=== PATIENT | female | born 1985 | race African-American/Black ===

== ENCOUNTER 2017-12-18 21:24 | Emergency (ER) | payer SELFPAY ==
[2017-12-18] MEDS ORDERED: Acetaminophen 500 MG TAB ONE (22:46)
--- NOTE | 2017-12-18 23:01 | RAD ---
LEFT ANKLE THREE VIEWS: 12/18/17 HISTORY: Injury. Fall down stairs. Pain and swelling. COMPARISON: None. FINDINGS: No fracture. No malalignment. The ankle mortise is congruent. Fifth metatarsal tuberosity appears nor mal. Moderate lateral soft tissue swelling. IMPRESSION: Lateral soft tissue swelling suggesting ligamentous injury. No acute fracture or malalignment. POS: [facility]
== END 2017-12-19 00:10 | disposition home or self-care (01) ==
LOC: ERS 21:24
DX: S93.402A Sprain of unspecified ligament of left ankle, initial encounter (principal); F31.9 Bipolar disorder, unspecified; F17.220 Nicotine dependence, chewing tobacco, uncomplicated; X50.1XXA Overexertion from prolonged static or awkward postures, initial encounter